=== PATIENT | male | born 1995 | race Caucasian/White ===

== ENCOUNTER 2019-04-07 21:10 | Emergency (ER) | payer MEDICAID ==
[~2019-04-07] VITALS: Ht 167.6 cm; Wt 98.0 kg
--- NOTE | 2019-04-07 21:30 | NUR ---
PT BIBSELF C/O SMALL LAC BETWEEN R FINGER FROM GLASS. BLEEDING CONTROLLED. UNK TDAP. PT AAOX4. RESPIRATIONS EVEN AND UNLABORED. NO ACUTE DISTRESS NOTED AT THIS TIME
[2019-04-07] MEDS ORDERED: TDAP [DIPH/PERTUSSIS/TET] 0.5 ML VIAL IM ONE ×2 (22:00)
[2019-04-07] MEDS ORDERED: LIDOCAINE 1% INJ 50 ML MDV IJ ONE (22:00)
[2019-04-07] MEDS ORDERED: LIDOCAINE HCL/PF 1% 30 ML SDV ONE (22:01)
[2019-04-07 23:34] VITALS: BP 122/89
--- NOTE | 2019-04-07 23:34 | NUR ---
Patient discharged to home in stable condition. Written and verbal after care instructions given. Patient verbalizes understanding of instruction.Pt ambulatory with a steady gait
== END 2019-04-07 23:34 | disposition home or self-care (01) ==
LOC: ER 21:18
DX: S61.411A Laceration without foreign body of right hand, initial encounter (principal); W25.XXXA Contact with sharp glass, initial encounter; Y93.89 Activity, other specified; Y92.89 Other specified places as the place of occurrence of the external cause; Y99.8 Other external cause status
CPT/HCPCS: 12001; 73130; 90471; 90715; 99283; J3490